=== PATIENT | male | born 1955 | race Hispanic/Latino ===

== ENCOUNTER 2018-02-27 07:28 | Day surgery (SDC) | payer OTHER ==
[2018-02-27 08:28] LABS: PLATELET COUNT 281 K/uL (142-355)
[2018-02-27 08:37] LABS: POTASSIUM 4.1 mmol/L (3.6-5.2)
== END 2018-02-27 11:47 | disposition home or self-care (01) ==
LOC: OR 07:28
PROVIDERS: Student in an Organized Health Care Education/Training Program
PROC: 0DJD8ZZ Inspection of Lower Intestinal Tract, Via Natural or Artificial Opening Endoscopic (ICD-10-PCS; principal; 2018-02-27)
DX: Z12.11 Encounter for screening for malignant neoplasm of colon (principal); K59.00 Constipation, unspecified
CPT/HCPCS: 80053; 85027; J2001; J2250; J2704; J3490

== ENCOUNTER 2018-06-10 09:20 | Outpatient (CLI) | payer OTHER | END 2018-06-10 18:53 | disposition home or self-care (01) | LOC: RAD 09:20 | DX: R09.89 Other specified symptoms and signs involving the circulatory and respiratory systems (principal) ==

== ENCOUNTER 2022-07-11 09:39 | Outpatient (CLI) | payer OTHER ==
[2022-07-11 09:56] LABS: PLATELET COUNT 294 K/uL (142-355)
[2022-07-11 10:09] LABS: POTASSIUM 4.9 mmol/L (3.6-5.2)
== END 2022-07-11 20:20 | disposition home or self-care (01) ==
LOC: RAD 09:39
PROVIDERS: ATTEND Nurse Practitioner Family
DX: R06.09 Other forms of dyspnea (principal); R53.83 Other fatigue
CPT/HCPCS: 36415; 80053; 83880; 85027